=== PATIENT | male | born 1960 | race Caucasian/White ===

== ENCOUNTER 2017-07-04 14:54 | Emergency (ER) | payer BC ==
[2017-07-04] MEDS ORDERED: Ketorolac 60 MG/2 ML SDV IM ONE (16:04)
--- NOTE | 2017-07-04 16:10 | EDM.PDOC ---
ED HPI GENERAL MEDICAL PROBLEM - General Chief Complaint: Headache Stated Complaint: HEADACHES Time Seen by Provider: 07/04/17 15:09 Source of Information: Reports: Patient, Family History Limitations: Reports: No Limitations - History of Present Illness INITIAL COMMENTS - FREE TEXT/NARRATIVE: Hamlet is a 57 year old male with PMH of chrons disease, migraine headaches, and ankylosing spondylitis, who presents to the clinic with c/o headache. He reports he was seen in the clinic on Saturday by Michelle GUTIÉRREZ for the same complaint. He reports that his headache has not gone away. He also reports he is somewhat dizzy/lightheaded. reports he has been "confused." She reports they will be having a conversation and he'll pause and then randomly talk about something else. Patient does not think he is confused. He denies any other symptoms. Does have some photophobia and phonophobia. Headache hasn't really interfered with his daily activities. He has continued to go to work etc. Denies any weakness, vertigo, fatigue, neuro change, chest pain, shortness of breath, difficulty chewing, cough, fever, chills. Does report his neck is tense. Onset Date: 06/24/17 Duration: Constant Location: Reports: Head Quality: Reports: Ache, Throbbing Severity: Severe Improves with: Reports: Medication Worsens with: Reports: Other (lights, sound) Associated Symptoms: Reports: Confusion, Headaches. 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: Acetaminophen, Aspirin, NSAIDS, Other Medication(s) ( flexeril) Posterior Headache Pain Score (Numeric/FACES): 6 - Related Data Allergies Allergy/AdvReac Type Severity Reaction Status Date / Time No Known Allergies Allergy Verified 07/04/17 15:59 Home Meds: Home Meds Certolizumab Pegol [Cimzia] 400 mg SQ ASDIRECTED 07/04/17 [History] Cholestyramine/Sucrose [Cholestyramine Packet] 4 gm PO ASDIRECTED 07/04/17 [ History] Cyclobenzaprine HCl 10 mg PO 07/04/17 [History] Folic Acid 1 mg PO DAILY 07/04/17 [History] Ketorolac Tromethamine 10 mg PO Q6H PRN #15 tablet 07/04/17 [Rx] Mesalamine [Pentasa] 500 mg PO QID 07/04/17 [History] Methotrexate PF 50 ml ASDIRECTED 07/04/17 [History] Pantoprazole Sodium 40 mg PO ASDIRECTED 07/04/17 [History] sulfaSALAzine [Sulfazine] 500 mg PO QID 07/04/17 [History] Past Medical History Other Gastrointestinal History: Crohns disease. - Past Surgical History GI Surgical History: Reports: Appendectomy, Cholecystectomy Social & Family History - Tobacco Use Smoking Status *Q: Never Smoker Second Hand Smoke Exposure: No ED ROS GENERAL - Review of Systems Review Of Systems: ROS reveals no pertinent complaints other than HPI. Constitutional: Denies: Fever, Chills, Malaise, Weakness, Fatigue, Night Sweats , Diaphoresis, Decreased Appetite HEENT: Reports: No Symptoms. Denies: Ear Pain, Rhinitis, Sinus Problem, Throat Pain, Throat Swelling, Vertigo, Vision Change Respiratory: Reports: No Symptoms. Denies: Shortness of Breath, Cough, Sputum Cardiovascular: Reports: No Symptoms, Lightheadedness. Denies: Chest Pain, Dyspnea on Exertion, Palpitations, Syncope Endocrine: Reports: No Symptoms. Denies: Fatigue GI/Abdominal: Reports: No Symptoms. Denies: Abdominal Pain, Diarrhea, Decreased Appetite, Nausea, Vomiting : Reports: No Symptoms. Denies: Dysuria, Frequency, Urgency Musculoskeletal: Reports: Muscle Stiffness. Denies: Neck Pain Skin: Reports: No Symptoms Neurological: Reports: Confusion, Dizziness, Headache. Denies: Numbness, Paresthesia, Pre-Existing Deficit, Seizure, Syncope, Tingling, Tremors, Trouble Speaking, Difficulty Walking, Weakness, Change in Speech, Gait Disturbance Psychiatric: Reports: No Symptoms. Denies: Anxiety Hematologic/Lymphatic: Reports: No Symptoms Immunologic: Reports: No Symptoms - Physical Exam Exam: See Below Exam Limited By: No Limitations General Appearance: Alert, WD/WN, No Apparent Distress Eye Exam: Bilateral Eye: EOMI, Normal Fundi, Normal Inspection, PERRL Ears: Normal External Exam, Normal Canal, Hearing Grossly Normal, Normal TMs Nose: Normal Inspection, Normal Mucosa, No Blood Throat/Mouth: Normal Inspection, Normal Lips, Normal Teeth, Normal Gums, Normal Oropharynx, Normal Voice, No Airway Compromise Head Exam: Atraumatic, Normocephalic. No: Scalp Tenderness Neck: Normal Inspection, Supple, Non-Tender, Limited Range of Motion, Tender Lateral (stiff). No: Lymphadenopathy (L), Lymphadenopathy (R) Respiratory/Chest: No Respiratory Distress, Lungs Clear, Normal Breath Sounds, No Accessory Muscle Use, Chest Non-Tender Cardiovascular: Normal Peripheral Pulses, Regular Rate, Rhythm, No Edema, No Gallop, No JVD, No Murmur, No Rub GI/Abdominal: Normal Bowel Sounds, Soft, Non-Tender, No Organomegaly, No Distention, No Abnormal Bruit, No Mass Neuro Exam (Abbreviated): Alert, Oriented, CN II-XII Intact, Normal Cognition, Normal Gait, Normal Reflexes, No Motor/Sensory Deficits Back Exam: Normal Inspection, Full Range of Motion, NT Extremities: Normal Inspection, Normal Range of Motion, Non-Tender, No Pedal Edema, Normal Capillary Refill Psychiatric: Normal Affect, Normal Mood Skin Exam: Warm, Dry, Intact, Normal Color, No Rash Course - Vital Signs Last Recorded V/S: Last Vital Signs Temp 98.6 F 07/04/17 15:16 Pulse 80 07/04/17 15:16 Resp 20 07/04/17 15:16 BP 132/75 07/04/17 15:16 Pulse Ox 95 07/04/17 15:16 - Orders/Labs/Meds Orders: Active Orders 24 hr Category Date Time Status Head wo Cont [CT] Stat Exams 07/04/17 15:10 Taken Labs: Laboratory Tests 07/04/17 07/04/17 07/04/17 Range/Units 16:00 16:00 16:00 WBC 7.2 (5.0-10.0) 10^3/uL RBC 4.60 (4.50-6.00) 10^6/uL Hgb 13.8 L (14.0-18.0) g/dL Hct 43.4 (40.0-54.0) % MCV 94.3 H (82.0-94.0) fL MCH 30.0 (27.0-32.0) pg MCHC 31.8 L (33.0-38.0) g/dL RDW Coeff of [place] 14.3 (11.0-15.0) % Plt Count 188 (150-400) 10^3/uL Neut % (Auto) 63.9 (35-85) % Lymph % (Auto) 26.5 (10-55) % [place] % (Auto) 8.5 (0-16) % Eos % (Auto) 1.0 (0-5) % Baso % (Auto) 0.1 (0-3) % Neut # (Auto) 4.60 (1.80-7.00) 10^3/uL Lymph # (Auto) 1.91 (1.00-4.80) 10^3/uL [place] # (Auto) 0.61 (0.00-0.80) 10^3/uL Eos # (Auto) 0.07 (0.00-0.45) 10^3/uL Baso # (Auto) 0.01 10^3/uL ESR 6 (0-15) mm/hr Sodium 142 (136-145) mEq/L Potassium 4.2 (3.5-5.0) mEq/L Chloride 106 (98-106) mEq/L Carbon Dioxide 31 (21-32) mmol/L BUN 13 (7-18) mg/dL Creatinine 1.0 (0.7-1.3) mg/dL Est Cr Clr Drug Dosing 69.89 mL/min Estimated GFR (MDRD) > 60 (>=60) mL/min Glucose 99 (75-99) mg/dL Calcium 8.1 L (8.4-10.1) mg/dL Total Bilirubin 0.3 (0.0-1.0) mg/dL AST 17 (15-37) U/L ALT 38 (12-78) U/L Alkaline Phosphatase 76 (46-116) U/L Creatine Kinase 173 (35-232) U/L C-Reactive Protein < 0.2 L (0.2-0.8) mg/dL Total Protein 6.6 (6.4-8.2) g/dL Albumin 3.1 L (3.4-5.0) g/dL Meds: Medications Discontinued Medications Generic Name Dose Route Start Last Admin Trade Name Freq PRN Reason Stop Dose Admin Ketorolac Tromethamine 60 mg 07/04/17 16:04 07/04/17 16:09 Toradol IM 07/04/17 16:05 60 mg ONETIME ONE Administration Orphenadrine Citrate 60 mg 07/04/17 16:15 07/04/17 16:10 Norflex IM 60 mg STAT MARI Administration - Radiology Interpretation Free Text/Narrative:: CT negative for any acute findings. CT Results Date: 07/04/17 CT Results Time: 16:03 - Re-Assessments/Exams Free Text/Narrative Re-Assessment/Exam: Patients headache improved with injections. Rates pain a 1/10 after injections. Departure - Departure Time of Disposition: 17:04 Disposition: Home, Self-Care 01 Condition: Good Clinical Impression: Tension-type headache - Discharge Information Prescriptions: Ketorolac Tromethamine 10 mg PO Q6H PRN #15 tablet PRN Reason: Pain Instructions: Tension Headache, [id number] Referrals: PCP,None [Primary Care Provider] - Forms: ED Department Discharge Additional Instructions: Toradol Q 6 hours as needed for headache Push fluids to ensure adequate hydration May also continue Flexeril as needed Apply heat to neck for comfort Physical therapy tomorrow morning at [address] negative Labs all stable Follow up with PCP if headache does not improve - My Orders Last 24 Hours: My Active Orders 07/04/17 15:10 Head wo Cont [CT] Stat - Assessment/Plan Last 24 Hours: My Active Orders 07/04/17 15:10 Head wo Cont [CT] Stat
[2017-07-04 16:49] LABS: CHLORIDE,CL 106 mEq/L (98-106); SODIUM,NA 142 mEq/L (136-145)
== END 2017-07-04 17:10 | disposition home or self-care (01) ==
LOC: CC.ED 14:54
DX: G44.209 Tension-type headache, unspecified, not intractable (principal)
CPT/HCPCS: 36415; 70450; 80053; 82550; 85025; 85651; 86140; 96372; 99284; J1885; J2360

== ENCOUNTER 2019-12-28 09:03 | Inpatient (IN) | payer BC, OTHER ==
[2019-12-28] MEDS ORDERED: Ibuprofen 200 MG Tab PO PRN (16:07)
[2019-12-28] MEDS ORDERED: Sodium Chloride 0.9% 10 ML Syringe FLUSH PRN (16:07)
[2019-12-28] MEDS ORDERED: Take Home: Pantoprazole 40 MG Tab.CR, 1 Tab Pack PO SCH (17:15)
[2019-12-28] MEDS ORDERED: CERTOLIZUMAB PEGOL 400 MG SQ SCH (17:15)
[2019-12-28] MEDS ORDERED: FLUTICASONE PROPIONATE INH SCH (17:15)
[2019-12-28] MEDS ORDERED: METHOTREXATE IM SCH (17:15)
[2019-12-28] MEDS: Dexamethasone 4 MG Tab PO SCH (17:19)
[2019-12-28] MEDS: Acetaminophen 325 MG Tab PO PRN (17:19)
[2019-12-28 17:45] LABS: CHLORIDE,CL 99 mEq/L (98-106); SODIUM,NA 135 mEq/L (136-145)
[2019-12-28] MEDS ORDERED: sulfaSALAzine 500 MG Tab PO SCH (20:00)
[2019-12-28] MEDS: Enoxaparin 40 MG/0.4 ML Syringe SUBCUT SCH (20:31)
[2019-12-28] MEDS: traZODone 50 MG Tab PO SCH (20:31)
[2019-12-29] MEDS: sulfaSALAzine 500 MG Tab PO SCH ×3 (01:24→20:07)
[2019-12-29] MEDS: Pantoprazole 40 MG Tab.CR PO SCH (06:35)
[2019-12-29] MEDS ORDERED: Fluticasone Propionate Nasal Spray 16 GM Bottle NAS SCH (08:00)
[2019-12-29] MEDS ORDERED: DULoxetine 30 MG Cap PO SCH (08:00)
[2019-12-29] MEDS: Enoxaparin 40 MG/0.4 ML Syringe SUBCUT SCH ×2 (08:05→20:07)
[2019-12-29] MEDS: Folic Acid 1 MG Tab PO SCH (08:06)
[2019-12-29] MEDS: Dexamethasone 4 MG Tab PO SCH (08:06)
[2019-12-29] MEDS: SUCROSE PO SCH ×2 (15:14→20:07)
[2019-12-29] MEDS: CHOLESTYRAMINE PO SCH ×2 (15:14→20:07)
[2019-12-29] MEDS: MESALAMINE 1000 MG PO SCH (15:15)
[2019-12-29] MEDS: REMDESIVIR (EUA) 100 MG in Sodium Chloride 0.9% 100 ML IV SCH (17:34)
[2019-12-29] MEDS: traZODone 50 MG Tab PO SCH (20:07)
--- NOTE | 2019-12-29 20:57 | PCM.PN ---
- General Info Date of Service: 12/29/19 Admission Dx/Problem (Free Text): COVID 19 Functional Status: Reports: Pain Controlled, Tolerating Diet, Ambulating - Review of Systems General: Reports: Weakness, Fatigue, Malaise. Denies: Fever HEENT: Reports: No Symptoms Pulmonary: Reports: Shortness of Breath, Cough Cardiovascular: Denies: Chest Pain, Edema, Lightheadedness Gastrointestinal: Denies: Abdominal Pain, Nausea, Vomiting Genitourinary: Reports: No Symptoms Musculoskeletal: Reports: Other (myalgia) Skin: Reports: No Symptoms Neurological: Reports: No Symptoms - Patient Data Vitals - Most Recent: Last Vital Signs Temp 97.9 F 12/29/19 16:00 Pulse 94 12/29/19 16:00 Resp 20 12/29/19 16:00 BP 129/84 12/29/19 16:00 Pulse Ox 96 12/29/19 16:00 Weight - Most Recent: 220 lb 5 oz I&O - Last 24 Hours: Intake & Output 12/29/19 12/29/19 12/29/19 06:59 14:59 22:59 Intake Total 400 1500 Output Total 1200 Balance 400 300 Lab Results Last 24 Hours: Laboratory Results - last 24 hr 12/28/19 Range/Units 17:25 Blood Type A POSITIVE Thong Results Last 24 Hours: Microbiology 12/28/19 17:25 Aerobic Blood Culture - Preliminary Blood - Venous NO GROWTH AFTER 1 DAY Anaerobic Blood Culture - Final Med Orders - Current: Current Medications Acetaminophen (Tylenol) 650 mg PO Q4H PRN PRN Reason: Pain (Mild 1-3)/fever Last Admin: 12/28/19 17:19 Dose: 650 mg Documented by: Dexamethasone (Dexamethasone) 6 mg PO DAILY [facility] Last Admin: 12/29/19 08:06 Dose: 6 mg Documented by: Duloxetine HCl (Cymbalta) 60 mg PO DAILY [facility] Last Admin: 12/29/19 08:06 Dose: 60 mg Documented by: Enoxaparin Sodium (Lovenox) 40 mg SUBCUT BID [facility] Last Admin: 12/29/19 20:07 Dose: 40 mg Documented by: Folic Acid (Folic Acid) 1 mg PO DAILY [facility] Last Admin: 12/29/19 08:06 Dose: 1 mg Documented by: Remdesivir 100 mg/ Sodium (Chloride) 100 mls @ 100 mls/hr IV Q24H [facility] Stop: 01/01/20 16:59 Last Admin: 12/29/19 17:34 Dose: 100 mls/hr Documented by: Ibuprofen (Motrin) 600 mg PO Q6H PRN PRN Reason: Pain (mild 1-3) Cholestyramine/Sucrose [ Cholestyramine] 4 Gm Ptom 0 gm PO TID [facility] Last Admin: 12/29/19 20:07 Dose: Not Given Documented by: Non-Formulary Medication (Fluticasone Propionate) 1 each INH ASDIRECTED [facility] Pantoprazole Sodium (Protonix) 40 mg PO DAILY@0700 [facility] Last Admin: 12/29/19 06:35 Dose: 40 mg Documented by: Sodium Chloride (Saline Flush) 10 ml FLUSH ASDIRECTED PRN PRN Reason: Keep Vein Open Sulfasalazine (Sulfasalazine) 1,000 mg PO BID [facility] Last Admin: 12/29/19 20:07 Dose: 1,000 mg Documented by: Trazodone HCl (Trazodone) 50 mg PO BEDTIME [facility] Last Admin: 12/29/19 20:07 Dose: 50 mg Documented by: Discontinued Medications Remdesivir 200 mg/ Sodium (Chloride) 250 mls @ 250 mls/hr IV ONETIME ONE Stop: 12/28/19 16:08 Last Admin: 12/28/19 17:19 Dose: 250 mls/hr Documented by: Non-Formulary Medication (Certolizumab Pegol [Cimzia]) 400 mg SQ ASDIRECTED [facility] Non-Formulary Medication (Mesalamine [Pentasa]) 1,000 mg PO QID [facility] Last Admin: 12/29/19 15:15 Dose: Not Given Documented by: Non-Formulary Medication (Methotrexate Pf) 1 ml IM ASDIRECTED [facility] Sulfasalazine (Sulfasalazine) 100 mg PO BID [facility] Last Admin: 12/29/19 04:43 Dose: Not Given Documented by: - Exam Quality Assessment: Supplemental Oxygen General: Alert, Oriented HEENT: Mucous Membr. Moist/[place] Neck: Supple Lungs: Decreased Breath Sounds Cardiovascular: Regular Rate, Regular Rhythm GI/Abdominal Exam: Normal Bowel Sounds, Soft, Non-Tender Extremities: Normal Inspection, No Pedal Edema Skin: Warm, Dry Neurological: No New Focal Deficit Sepsis Event Note - Evaluation Sepsis Screening Result: No Definite Risk - Focused Exam Vital Signs: Vital Signs Temp Pulse Resp BP Pulse Ox 12/29/19 16:00 97.9 F 94 20 129/84 96 12/29/19 12:00 97.9 F 98 18 138/79 97 - Problem List & Annotations (1) COVID-19 SNOMED Code(s): 131876134 Code(s): U07.1 - COVID-19 Status: Acute Priority: High Current Visit: Yes - Problem List Review Problem List Initiated/Reviewed/Updated: Yes - Assessment Assessment:: COVID 19 - Plan Plan:: Patient resting quietly. Continues to have generalized malaise. Cough, nonproductive. Feels short of breath yet at times with chest tightness. Oxygen sat dropped to 89-90% this am on room air. Has been afebrile. Blood pressure stable. Will continue with Remdesivir, dexamethasone and oxygen. Repeat labs in am.
[2019-12-30] MEDS: Pantoprazole 40 MG Tab.CR PO SCH (06:36)
[2019-12-30] MEDS ORDERED: CHOLESTYRAMINE PO SCH (08:00)
[2019-12-30] MEDS ORDERED: BUDESONIDE 3 MG PO SCH (08:00)
[2019-12-30] MEDS ORDERED: amLODIPine 10 MG Tab PO SCH (08:00)
[2019-12-30] MEDS ORDERED: SUCROSE PO SCH (08:00)
[2019-12-30 08:08] LABS: CHLORIDE,CL 102 mEq/L (98-106); SODIUM,NA 142 mEq/L (136-145)
[2019-12-30] MEDS: Dexamethasone 4 MG Tab PO SCH (08:17)
[2019-12-30] MEDS: sulfaSALAzine 500 MG Tab PO SCH (08:18)
[2019-12-30] MEDS: Folic Acid 1 MG Tab PO SCH (08:19)
[2019-12-30] MEDS: Enoxaparin 40 MG/0.4 ML Syringe SUBCUT SCH (08:19)
--- NOTE | 2019-12-30 14:57 | PCM.PN ---
- General Info Date of Service: 12/30/19 Admission Dx/Problem (Free Text): COVID 19 Functional Status: Reports: Pain Controlled, Ambulating. Denies: Tolerating Diet (patient states appetite is poor this am) - Review of Systems General: Reports: Weakness, Fatigue, Malaise. Denies: Fever HEENT: Reports: Headaches, Rhinitis. Denies: Ear Pain, Sinus Congestion Pulmonary: Reports: Pleuritic Chest Pain, Cough Cardiovascular: Denies: Chest Pain, Edema, Lightheadedness Gastrointestinal: Reports: Diarrhea. Denies: Abdominal Pain, Nausea, Vomiting Genitourinary: Reports: No Symptoms Musculoskeletal: Reports: Other (myalgia) Skin: Reports: No Symptoms Neurological: Reports: Headache, Weakness - Patient Data Vitals - Most Recent: Last Vital Signs Temp 97.4 F 12/30/19 12:00 Pulse 101 H 12/30/19 12:00 Resp 22 H 12/30/19 12:00 BP 149/74 H 12/30/19 12:00 Pulse Ox 95 12/30/19 12:00 Weight - Most Recent: 220 lb 5 oz I&O - Last 24 Hours: Intake & Output 12/29/19 12/30/19 12/30/19 22:59 06:59 14:59 Intake Total 1500 1000 Output Total 1200 Balance 300 1000 Lab Results Last 24 Hours: Laboratory Results - last 24 hr 12/30/19 12/30/19 Range/Units 07:35 07:35 WBC 6.5 (5.0-10.0) 10^3/uL RBC 4.57 (4.50-6.00) 10^6/uL Hgb 14.5 (14.0-18.0) g/dL Hct 43.7 (40.0-54.0) % MCV 95.6 H (82.0-94.0) fL MCH 31.7 (27.0-32.0) pg MCHC 33.2 (33.0-38.0) g/dL RDW Coeff of [place]elin 14.8 (11.0-15.0) % Plt Count 178 (150-400) 10^3/uL Neut % (Auto) 60.5 (35-85) % Lymph % (Auto) 29.8 (10-55) % [place] % (Auto) 9.5 (0-16) % Eos % (Auto) 0 (0-5) % Baso % (Auto) 0.2 (0-3) % Neut # (Auto) 3.95 (1.80-7.00) 10^3/uL Lymph # (Auto) 1.94 (1.00-4.80) 10^3/uL [place] # (Auto) 0.62 (0.00-0.80) 10^3/uL Eos # (Auto) 0.00 (0.00-0.45) 10^3/uL Baso # (Auto) 0.01 10^3/uL Sodium 142 (136-145) mEq/L Potassium 3.4 L (3.5-5.0) mEq/L Chloride 102 (98-106) mEq/L Carbon Dioxide 31 (21-32) mmol/L BUN 21 H D (7-18) mg/dL Creatinine 1.1 (0.7-1.3) mg/dL Est Cr Clr Drug Dosing 62.04 mL/min Estimated GFR (MDRD) > 60 (>=60) mL/min Glucose 93 (75-99) mg/dL Calcium 8.6 (8.4-10.1) mg/dL Total Bilirubin 0.4 (0.0-1.0) mg/dL AST 49 H (15-37) U/L ALT 93 H (12-78) U/L Alkaline Phosphatase 118 H (46-116) U/L C-Reactive Protein 4.5 H (0.2-0.8) mg/dL Total Protein 8.0 (6.4-8.2) g/dL Albumin 3.1 L (3.4-5.0) g/dL Thong Results Last 24 Hours: Microbiology 12/28/19 17:25 Aerobic Blood Culture - Preliminary Blood - Venous NO GROWTH AFTER 1 DAY Anaerobic Blood Culture - Final Med Orders - Current: Current Medications Acetaminophen (Tylenol) 650 mg PO Q4H PRN PRN Reason: Pain (Mild 1-3)/fever Last Admin: 12/28/19 17:19 Dose: 650 mg Documented by: Amlodipine Besylate (Norvasc) 5 mg PO DAILY [facility] Last Admin: 12/30/19 08:19 Dose: 5 mg Documented by: Dexamethasone (Dexamethasone) 6 mg PO DAILY [facility] Last Admin: 12/30/19 08:17 Dose: 6 mg Documented by: Divalproex Sodium (Depakote Er) 1,000 mg PO BEDTIME [facility] Duloxetine HCl (Cymbalta) 90 mg PO DAILY [facility] Enoxaparin Sodium (Lovenox) 40 mg SUBCUT BID [facility] Last Admin: 12/30/19 08:19 Dose: 40 mg Documented by: Folic Acid (Folic Acid) 1 mg PO DAILY [facility] Last Admin: 12/30/19 08:19 Dose: 1 mg Documented by: Remdesivir 100 mg/ Sodium (Chloride) 100 mls @ 100 mls/hr IV Q24H [facility] Stop: 01/01/20 16:59 Last Admin: 12/29/19 17:34 Dose: 100 mls/hr Documented by: Ibuprofen (Motrin) 600 mg PO Q6H PRN PRN Reason: Pain (mild 1-3) Non-Formulary Medication (Fluticasone Propionate) 1 each INH ASDIRECTED [facility] Cholestyramine/Sucrose 4 Gm Own Med 0 each PO DAILY [facility] Last Admin: 12/30/19 08:20 Dose: 1 each Documented by: Pantoprazole Sodium (Protonix) 40 mg PO DAILY@0700 [facility] Last Admin: 12/30/19 06:36 Dose: 40 mg Documented by: Patient's Own Medication Budesonide 3 Mg Cap* * 3 each PO DAILY [facility] Last Admin: 12/30/19 09:49 Dose: 3 each Documented by: Sodium Chloride (Saline Flush) 10 ml FLUSH ASDIRECTED PRN PRN Reason: Keep Vein Open Sulfasalazine (Sulfasalazine) 1,000 mg PO BID [facility] Last Admin: 12/30/19 08:18 Dose: 1,000 mg Documented by: Trazodone HCl (Trazodone) 50 mg PO BEDTIME [facility] Last Admin: 12/29/19 20:07 Dose: 50 mg Documented by: Discontinued Medications Duloxetine HCl (Cymbalta) 60 mg PO DAILY [facility] Last Admin: 12/29/19 08:06 Dose: 60 mg Documented by: Remdesivir 200 mg/ Sodium (Chloride) 250 mls @ 250 mls/hr IV ONETIME ONE Stop: 12/28/19 16:08 Last Admin: 12/28/19 17:19 Dose: 250 mls/hr Documented by: Non-Formulary Medication (Certolizumab Pegol [Cimzia]) 400 mg SQ ASDIRECTED [facility] Cholestyramine/Sucrose [ Cholestyramine] 4 Gm Ptom 0 gm PO TID [facility] Last Admin: 12/29/19 20:07 Dose: Not Given Documented by: Non-Formulary Medication (Mesalamine [Pentasa]) 1,000 mg PO QID [facility] Last Admin: 12/29/19 15:15 Dose: Not Given Documented by: Non-Formulary Medication (Methotrexate Pf) 1 ml IM ASDIRECTED [facility] Sulfasalazine (Sulfasalazine) 100 mg PO BID [facility] Last Admin: 12/29/19 04:43 Dose: Not Given Documented by: - Exam Quality Assessment: Supplemental Oxygen General: Alert, Oriented HEENT: Mucous Membr. Moist/[place] Neck: Supple Lungs: Decreased Breath Sounds Cardiovascular: Regular Rate, Regular Rhythm GI/Abdominal Exam: Normal Bowel Sounds, Soft, Non-Tender Extremities: Normal Inspection, No Pedal Edema Skin: Warm, Dry Neurological: No New Focal Deficit Sepsis Event Note - Evaluation Sepsis Screening Result: No Definite Risk - Focused Exam Vital Signs: Vital Signs Temp Pulse Resp BP BP Pulse Ox 12/30/19 12:00 97.4 F 101 H 22 H 149/74 H 95 12/30/19 08:19 150/78 H 12/30/19 08:00 98.4 F 98 22 H 153/89 H 94 L 12/30/19 04:00 98.3 F 87 16 142/83 H 97 - Problem List & Annotations (1) COVID-19 SNOMED Code(s): 856257655 Code(s): U07.1 - COVID-19 Status: Acute Priority: High Current Visit: Yes - Problem List Review Problem List Initiated/Reviewed/Updated: Yes - Assessment Assessment:: COVID 19 - Plan Plan:: Patient resting quietly. Continues to have generalized malaise. Cough, nonprod uctive. Feels short of breath yet at times with chest tightness. Oxygen sat dropped to 89-90% this am on room air. Has been afebrile. Blood pressure stable. Will continue with Remdesivir, dexamethasone and oxygen. Repeat labs in am. 12-30-19 Patient admits to not feeling as well this am. Did sleep well but has more of a headache, body aches this am. History of diarrhea but does feel it is worse this am. Appetite diminished this am. Some chest tightness. Lung sounds diminished. Oxygen sat 94% on 2 liters. Labs are stable this am. Will continue with Remdesivir, dexamethasone. Plasma to be given today. Continue to follow
[2019-12-30] MEDS: Acetaminophen 325 MG Tab PO PRN (15:06)
[2019-12-30] MEDS: REMDESIVIR (EUA) 100 MG in Sodium Chloride 0.9% 100 ML IV SCH (15:07)
--- NOTE | 2019-12-30 15:50 | PCM.DCSUM1 ---
Discharge Summary - Hospital Course HPI Initial Comments: Hamlet is a 59 yo male who was admitted to the hospital from clinic 12/28/2019 with COVID-19 with hypoxia. Chest xray did reveal LLL infiltrate. He has been maintaining O2 sats > 92% on 2 L O2 via NC throughout stay. Today, patient feels like his body aches, chills, and diarrhea are worse. Patient has received 3 doses of remdesivir, 6 mg dexamethasone daily. Was scheduled to receive plasma this evening, but patient desired to transfer prior to plasma being thawed, so he did not receive this. Family called in multiple times, requesting patient be transferred to higher level of care given his history of Chron's disease and reactive airway disease. is concerned as he feels worse today. Staff did discuss with patient that these body aches and symptoms are typical of Covid. I did contact [facility] one call per family request. Discussed case with Dr. Ferrer, who accepted patient for transfer. Patient will be transferred via ALS to [facility]. Currently he is in stable condition. - Discharge Data Discharge Date: 12/30/19 Discharge Disposition: DC/Tfer to Acute Hospital 02 Condition: Fair - Referral to Home Health Primary Care Physician: Charanjit Mercado PA-C - Discharge Diagnosis/Problem(s) (1) COVID-19 SNOMED Code(s): 452332608 ICD Code: U07.1 - COVID-19 Status: Acute Priority: High Current Visit: Yes - Patient Instructions Diet: Usual Diet as Tolerated Activity: As Tolerated - Discharge Plan *PRESCRIPTION DRUG MONITORING PROGRAM REVIEWED*: Not Applicable *COPY OF PRESCRIPTION DRUG MONITORING REPORT IN PATIENT SARAH: Not Applicable Home Medications: Home Meds Cholestyramine/Sucrose [Cholestyramine Packet] 4 gm PO DAILY 07/04/17 [History] Folic Acid 1 mg PO DAILY 07/04/17 [History] Methotrexate PF 1 ml IM WEEKLY 07/04/17 [History] Pantoprazole Sodium 40 mg PO DAILY 07/04/17 [History] sulfaSALAzine [Sulfazine] 1,000 mg PO BID 07/04/17 [History] DULoxetine HCl [Duloxetine HCl] 90 mg PO DAILY 04/16/19 [History] Eletriptan Hydrobromide [Relpax] 20 mg PO DAILY PRN 04/16/19 [History] Fluticasone Propionate [Flovent HFA 110 MCG] 1 each INH BID 04/16/19 [History] traZODone HCl [Trazodone HCl] 50 mg PO BEDTIME 04/16/19 [History] Budesonide [Budesonide EC] 3 cap PO DAILY 12/29/19 [History] Divalproex Sodium [Divalproex Sodium ER] 1,000 mg PO BEDTIME 12/29/19 [History] amLODIPine [Norvasc] 5 mg PO DAILY 12/29/19 [History] - Discharge Summary/Plan Comment DC Time >30 min.: Yes (Arranging transfer, transfer paperwork) - General Info Date of Service: 12/30/19 Admission Dx/Problem (Free Text: COVID 19 - Review of Systems General: Reports: Weakness, Fatigue, Malaise, Chills. Denies: Appetite Pulmonary: Reports: Shortness of Breath, Cough, Sputum Cardiovascular: Reports: Chest Pain (tightness), Dyspnea on Exertion. Denies: Edema, Lightheadedness - Patient Data Vitals - Most Recent: Last Vital Signs Temp 98.7 F 12/30/19 15:15 Pulse 86 12/30/19 15:15 Resp 22 H 12/30/19 15:15 BP 139/87 12/30/19 15:15 Pulse Ox 94 L 12/30/19 15:15 Weight - Most Recent: 220 lb 5 oz I&O - Last 24 hours: Intake & Output 12/30/19 12/30/19 12/30/19 06:59 14:59 22:59 Intake Total 1000 Balance 1000 Lab Results - Last 24 hrs: Laboratory Results - last 24 hr 12/30/19 12/30/19 Range/Units 07:35 07:35 WBC 6.5 (5.0-10.0) 10^3/uL RBC 4.57 (4.50-6.00) 10^6/uL Hgb 14.5 (14.0-18.0) g/dL Hct 43.7 (40.0-54.0) % MCV 95.6 H (82.0-94.0) fL MCH 31.7 (27.0-32.0) pg MCHC 33.2 (33.0-38.0) g/dL RDW Coeff of Katelin 14.8 (11.0-15.0) % Plt Count 178 (150-400) 10^3/uL Neut % (Auto) 60.5 (35-85) % Lymph % (Auto) 29.8 (10-55) % [place] % (Auto) 9.5 (0-16) % Eos % (Auto) 0 (0-5) % Baso % (Auto) 0.2 (0-3) % Neut # (Auto) 3.95 (1.80-7.00) 10^3/uL Lymph # (Auto) 1.94 (1.00-4.80) 10^3/uL [place] # (Auto) 0.62 (0.00-0.80) 10^3/uL Eos # (Auto) 0.00 (0.00-0.45) 10^3/uL Baso # (Auto) 0.01 10^3/uL Sodium 142 (136-145) mEq/L Potassium 3.4 L (3.5-5.0) mEq/L Chloride 102 (98-106) mEq/L Carbon Dioxide 31 (21-32) mmol/L BUN 21 H D (7-18) mg/dL Creatinine 1.1 (0.7-1.3) mg/dL Est Cr Clr Drug Dosing 62.04 mL/min Estimated GFR (MDRD) > 60 (>=60) mL/min Glucose 93 (75-99) mg/dL Calcium 8.6 (8.4-10.1) mg/dL Total Bilirubin 0.4 (0.0-1.0) mg/dL AST 49 H (15-37) U/L ALT 93 H (12-78) U/L Alkaline Phosphatase 118 H (46-116) U/L C-Reactive Protein 4.5 H (0.2-0.8) mg/dL Total Protein 8.0 (6.4-8.2) g/dL Albumin 3.1 L (3.4-5.0) g/dL [facility] Results - Last 24 hrs: Microbiology 12/28/19 17:25 Aerobic Blood Culture - Preliminary Blood - Venous NO GROWTH AFTER 1 DAY Anaerobic Blood Culture - Final Med Orders - Current: Current Medications Acetaminophen (Tylenol) 650 mg PO Q4H PRN PRN Reason: Pain (Mild 1-3)/fever Last Admin: 10/21/20 15:06 Dose: 650 mg Documented by: Amlodipine Besylate (Norvasc) 5 mg PO DAILY [facility] Last Admin: 12/30/19 08:19 Dose: 5 mg Documented by: Dexamethasone (Dexamethasone) 6 mg PO DAILY [facility] Last Admin: 12/30/19 08:17 Dose: 6 mg Documented by: Divalproex Sodium (Depakote Er) 1,000 mg PO BEDTIME [facility] Duloxetine HCl (Cymbalta) 90 mg PO DAILY [facility] Enoxaparin Sodium (Lovenox) 40 mg SUBCUT BID [facility] Last Admin: 12/30/19 08:19 Dose: 40 mg Documented by: Folic Acid (Folic Acid) 1 mg PO DAILY [facility] Last Admin: 12/30/19 08:19 Dose: 1 mg Documented by: Remdesivir 100 mg/ Sodium (Chloride) 100 mls @ 100 mls/hr IV Q24H [facility] Stop: 01/01/20 16:59 Last Admin: 12/30/19 15:07 Dose: 100 mls/hr Documented by: Ibuprofen (Motrin) 600 mg PO Q6H PRN PRN Reason: Pain (mild 1-3) Non-Formulary Medication (Fluticasone Propionate) 1 each INH ASDIRECTED [facility] Cholestyramine/Sucrose 4 Gm Own Med 0 each PO DAILY [facility] Last Admin: 12/30/19 08:20 Dose: 1 each Documented by: Pantoprazole Sodium (Protonix) 40 mg PO DAILY@0700 [facility] Last Admin: 12/30/19 06:36 Dose: 40 mg Documented by: Patient's Own Medication Budesonide 3 Mg Cap* * 3 each PO DAILY [facility] Last Admin: 12/30/19 09:49 Dose: 3 each Documented by: Sodium Chloride (Saline Flush) 10 ml FLUSH ASDIRECTED PRN PRN Reason: Keep Vein Open Sulfasalazine (Sulfasalazine) 1,000 mg PO BID [facility] Last Admin: 12/30/19 08:18 Dose: 1,000 mg Documented by: Trazodone HCl (Trazodone) 50 mg PO BEDTIME [facility] Last Admin: 12/29/19 20:07 Dose: 50 mg Documented by: Discontinued Medications Duloxetine HCl (Cymbalta) 60 mg PO DAILY [facility] Last Admin: 12/29/19 08:06 Dose: 60 mg Documented by: Remdesivir 200 mg/ Sodium (Chloride) 250 mls @ 250 mls/hr IV ONETIME ONE Stop: 12/28/19 16:08 Last Admin: 12/28/19 17:19 Dose: 250 mls/hr Documented by: Non-Formulary Medication (Certolizumab Pegol [Cimzia]) 400 mg SQ ASDIRECTED [facility] Cholestyramine/Sucrose [ Cholestyramine] 4 Gm Ptom 0 gm PO TID [facility] Last Admin: 12/29/19 20:07 Dose: Not Given Documented by: Non-Formulary Medication (Mesalamine [Pentasa]) 1,000 mg PO QID [facility] Last Admin: 12/29/19 15:15 Dose: Not Given Documented by: Non-Formulary Medication (Methotrexate Pf) 1 ml IM ASDIRECTED [facility] Sulfasalazine (Sulfasalazine) 100 mg PO BID [facility] Last Admin: 12/29/19 04:43 Dose: Not Given Documented by: - Exam Quality Assessment: Reports: Supplemental Oxygen General: Reports: Alert, Oriented, No Acute Distress Neck: Reports: Supple Lungs: Reports: Normal Respiratory Effort, Decreased Breath Sounds Cardiovascular: Reports: Regular Rate, Regular Rhythm
[2019-12-30] MEDS ORDERED: DULoxetine 30 MG Cap PO SCH (20:00)
[2019-12-30] MEDS ORDERED: Divalproex Sodium 250 MG Tab.ER PO SCH (20:00)
== END 2019-12-30 17:43 | DRG 137 ==
LOC: CC.FCMC 09:03 → CC.MS 16:05 → UNDOADMIN 16:05 → CC.MS 16:07
PROVIDERS: ADMIT Physician Assistant Medical; ATTEND Family Medicine
PROC: XW033E5 Introduction of Remdesivir Anti-infective into Peripheral Vein, Percutaneous Approach, New Technology Group 5 (ICD-10-PCS; principal; 2019-12-28)
PROC: XW033F5 Introduction of Other New Technology Therapeutic Substance into Peripheral Vein, Percutaneous Approach, New Technology Group 5 (ICD-10-PCS; 2019-12-28)
DX: U07.1 COVID-19 (principal); R09.02 Hypoxemia
CPT/HCPCS: 36415; 71046; 80053; 83605; 85025; 85379; 86140; 86900; 86901; 87040; A9270-GY; J1650; J7050; J8540; U0002

== ENCOUNTER 2024-04-18 19:57 | Inpatient (IN) | payer BC ==
[2024-04-18] MEDS: Albuterol/Ipratropium 3.0-0.5 MG/3 ML Neb Soln NEB ONE (20:19)
[2024-04-18 20:31] LABS: BASOPHILS ABSOLUTE AUTO 0.02 10^3/uL (0.00-0.50); BASOPHILS PERCENT AUTO 0.2 % (0-1); EOSINOPHILS ABSOLUTE AUTO 0.01 10^3/uL (0.00-1.50); EOSINOPHILS PERCENT AUTO 0.1 % (0-6); HEMATOCRIT 38.5 % (42.0-52.0); HEMOGLOBIN 12.2 g/dL (14.0-18.0); IMMATURE GRAN ABSOLUTE AUTO 0.02 10^3/uL (0.00-0.49); IMMATURE GRAN PERCENT AUTO 0.2 % (0.0-4.9); LYMPHOCYTES ABSOLUTE AUTO 1.03 10^3/uL (0.60-5.00); MEAN CORPUSCULAR HEMOGLOBIN 31.4 pg (27.0-32.0); MEAN CORPUSCULAR HGB CONC 31.7 g/dL (32.0-36.0); MEAN CORPUSCULAR VOLUME 99.2 fL (83.0-97.0); MONOCYTES ABSOLUTE AUTO 0.57 10^3/uL (0.00-1.50); MONOCYTES PERCENT AUTO 6.6 % (0-10); NEUTROPHILS ABSOLUTE AUTO 6.95 x10^3/uL (1.80-8.00); NEUTROPHILS PERCENT AUTO 80.9 % (41-71); PLATELET COUNT,PLT 166 10^3/uL (150-400); RED BLOOD CELL COUNT 3.88 x10^6/uL (4.50-6.00); WHITE BLOOD CELL COUNT,WBC 8.6 10^3/uL (4.0-11.0)
[2024-04-18 20:47] LABS: ALANINE AMINOTRANSFERASE,ALT 24 U/L (12-78); ALBUMIN 2.9 g/dL (3.4-5.0); ALKALINE PHOSPHATASE 72 U/L (46-116); ASPARTATE AMNIOTRANSFERASE,AST 22 U/L (15-37); BILIRUBIN TOTAL 0.6 mg/dL (0.0-1.0); BLOOD UREA NITROGEN,BUN 10 mg/dL (7-18); C-REACTIVE PROTEIN 11.35 mg/dL (<=0.50); CALCIUM 8.2 mg/dL (8.4-10.1); CARBON DIOXIDE,CO2 28 mmol/L (21-32); CHLORIDE,CL 99 mEq/L (98-106); CREATININE 0.9 mg/dL (0.7-1.3); ESTIMATED GFR 97 mL/min (>=60); GLUCOSE RANDOM 101 mg/dL (75-99); MAGNESIUM 1.8 mg/dL (1.8-2.4); POTASSIUM,K 3.4 mEq/L (3.5-5.0); PROTEIN TOTAL,TP 6.6 g/dL (6.4-8.2); SODIUM,NA 138 mEq/L (136-145)
[2024-04-18] MEDS: methylPREDNISolone Sodium Succinate 40 MG/1 ML SDV IVPUSH ONE (20:47)
[2024-04-18] MEDS: Acetaminophen 500 MG Tab PO ONE (20:52)
[2024-04-18] MEDS: Sodium Chloride 0.9% 500 ML IV SCH (21:03)
[2024-04-18] MEDS: Azithromycin 250 MG Tab PO SCH (21:04)
[2024-04-18] MEDS: cefTRIAXone 2 GM Vial IVPUSH SCH (21:22)
[2024-04-18] MEDS: Potassium Chloride 20 MEQ Tab.ER PO ONE (22:06)
[2024-04-18] MEDS ORDERED: Polyethylene Glycol 3350 Powder 17 GM Packet PO PRN (22:21)
[2024-04-18] MEDS ORDERED: Albuterol 0.083% 2.5 MG/3 ML Neb Soln NEB PRN (22:21)
[2024-04-18] MEDS ORDERED: Docusate Sodium 100 MG Cap PO PRN (22:21)
[2024-04-18] MEDS ORDERED: Ondansetron 4 MG Tab.DIS PO PRN (22:21)
[2024-04-19] MEDS: Sodium Chloride 0.9% 1,000 ML IV SCH ×2 (01:56→12:48)
[2024-04-19] MEDS: Pantoprazole 40 MG Tab.CR PO SCH (06:50)
[2024-04-19 07:15] LABS: C-REACTIVE PROTEIN 10.04 mg/dL (<=0.50); CALCIUM 8.3 mg/dL (8.4-10.1); CREATININE 0.9 mg/dL (0.7-1.3); EST CRCL DRUG DOSING (CG) 71.26 mL/min; POTASSIUM,K 4.3 mEq/L (3.5-5.0)
[2024-04-19] MEDS: Losartan 100 MG Tab PO SCH (07:56)
[2024-04-19] MEDS: Loperamide 2 MG Cap PO SCH (07:56)
[2024-04-19] MEDS: Loratadine 10 MG Tab PO SCH (07:56)
[2024-04-19] MEDS: DULoxetine 30 MG Cap PO SCH (07:56)
[2024-04-19] MEDS: Multivitamin Tab PO SCH (07:56)
[2024-04-19] MEDS: sulfaSALAzine 500 MG Tab PO SCH (07:56)
[2024-04-19] MEDS: Ferrous Sulfate 324 MG Tab.EC PO SCH (07:57)
[2024-04-19] MEDS: Calcium Carbonate 500 MG Tab.Chew PO SCH (07:57)
[2024-04-19] MEDS: Folic Acid 1 MG Tab PO SCH (07:57)
[2024-04-19] MEDS: methylPREDNISolone Sodium Succinate 40 MG/1 ML SDV IVPUSH SCH (07:58)
[2024-04-19] MEDS: Albuterol/Ipratropium 3.0-0.5 MG/3 ML Neb Soln NEB SCH (07:59)
[2024-04-19] MEDS: Enoxaparin 40 MG/0.4 ML Syringe SUBCUT SCH (07:59)
[2024-04-19] MEDS: Ipratropium 0.02% 0.5 MG/2.5 ML Neb Soln NEB SCH (07:59)
[2024-04-19] MEDS: RINVOQ 15 MG PO SCH (08:00)
[2024-04-19] MEDS: BUDESONIDE 3 MG PO SCH (08:00)
[2024-04-19] MEDS: [UNRECOGNIZED DRUG - OTHER] PO SCH (08:00)
[2024-04-19 08:17] LABS: BASOPHILS ABSOLUTE AUTO 0.01 10^3/uL (0.00-0.50); BASOPHILS PERCENT AUTO 0.1 % (0-1); HEMATOCRIT 39.1 % (42.0-52.0); HEMOGLOBIN 12.3 g/dL (14.0-18.0); IMMATURE GRAN ABSOLUTE AUTO 0.03 10^3/uL (0.00-0.49); IMMATURE GRAN PERCENT AUTO 0.4 % (0.0-4.9); LYMPHOCYTES ABSOLUTE AUTO 0.74 10^3/uL (0.60-5.00); LYMPHOCYTES PERCENT AUTO 9.3 % (24-44); MEAN CORPUSCULAR HEMOGLOBIN 31.3 pg (27.0-32.0); MEAN CORPUSCULAR HGB CONC 31.5 g/dL (32.0-36.0); MEAN CORPUSCULAR VOLUME 99.5 fL (83.0-97.0); MONOCYTES ABSOLUTE AUTO 0.48 10^3/uL (0.00-1.50); MONOCYTES PERCENT AUTO 6.1 % (0-10); NEUTROPHILS ABSOLUTE AUTO 6.66 x10^3/uL (1.80-8.00); NEUTROPHILS PERCENT AUTO 84.1 % (41-71); PLATELET COUNT,PLT 181 10^3/uL (150-400); RED BLOOD CELL COUNT 3.93 x10^6/uL (4.50-6.00); WHITE BLOOD CELL COUNT,WBC 7.9 10^3/uL (4.0-11.0)
[2024-04-19] MEDS: Acetaminophen 325 MG Tab PO PRN (18:18)
[2024-04-19] MEDS: Mometasone Furoate Powder 220 MCG/Puff 14 Dose Inhaler INH SCH (18:57)
[2024-04-19] MEDS: traZODone 50 MG Tab PO SCH (19:37)
[2024-04-19] MEDS: Montelukast 10 MG Tab PO SCH (19:37)
[2024-04-19] MEDS: Vitamin E (dl-alpha-tocopherol acetate) 400 Unit Cap PO SCH (19:38)
[2024-04-19] MEDS: Cyanocobalamin (Vitamin B12) 1,000 MCG Tab PO SCH (19:38)
[2024-04-19] MEDS: guaiFENesin 200 MG Tab PO PRN (20:37)
[2024-04-20 07:34] LABS: BASOPHILS ABSOLUTE AUTO 0.01 10^3/uL (0.00-0.50); BASOPHILS PERCENT AUTO 0.1 % (0-1); EOSINOPHILS ABSOLUTE AUTO 0.01 10^3/uL (0.00-1.50); EOSINOPHILS PERCENT AUTO 0.1 % (0-6); HEMOGLOBIN 12.1 g/dL (14.0-18.0); IMMATURE GRAN ABSOLUTE AUTO 0.05 10^3/uL (0.00-0.49); IMMATURE GRAN PERCENT AUTO 0.4 % (0.0-4.9); LYMPHOCYTES ABSOLUTE AUTO 1.42 10^3/uL (0.60-5.00); LYMPHOCYTES PERCENT AUTO 10.8 % (24-44); MEAN CORPUSCULAR HEMOGLOBIN 31.8 pg (27.0-32.0); MEAN CORPUSCULAR HGB CONC 30.3 g/dL (32.0-36.0); MONOCYTES ABSOLUTE AUTO 0.49 10^3/uL (0.00-1.50); MONOCYTES PERCENT AUTO 3.7 % (0-10); NEUTROPHILS ABSOLUTE AUTO 11.13 x10^3/uL (1.80-8.00); NEUTROPHILS PERCENT AUTO 84.9 % (41-71); PLATELET COUNT,PLT 199 10^3/uL (150-400); RED BLOOD CELL COUNT 3.81 x10^6/uL (4.50-6.00); WHITE BLOOD CELL COUNT,WBC 13.1 10^3/uL (4.0-11.0)
[2024-04-20 10:25] LABS: INFLUENZA A NAA NEGATIVE (NEGATIVE); INFLUENZA B NAA NEGATIVE (NEGATIVE)
[2024-04-20 10:27] LABS: CORONAVIRUS COVID-19 NAA POSITIVE (NEGATIVE)
[2024-04-20 11:07] LABS: CALCIUM 8.4 mg/dL (8.4-10.1); EST CRCL DRUG DOSING (CG) 64.13 mL/min; POTASSIUM,K 4.1 mEq/L (3.5-5.0)
[2024-04-20] MEDS: REMDESIVIR 200 MG in Sodium Chloride 0.9% 250 ML IV ONE (11:08)
[2024-04-20 11:21] LABS: BILIRUBIN DIRECT 0.1 mg/dL (0.0-0.3); BILIRUBIN TOTAL 0.5 mg/dL (0.0-1.0); PROTEIN TOTAL,TP 7.2 g/dL (6.4-8.2)
[2024-04-20] MEDS: Cholestyramine/Sucrose Powder 4 GM Packet PO ONE (14:41)
[2024-04-20] MEDS: Melatonin 3 MG Tab PO SCH (19:33)
[2024-04-20] MEDS: cefTRIAXone 2 GM Vial IVPUSH SCH (19:35)
[2024-04-21 07:49] LABS: BASOPHILS ABSOLUTE AUTO 0.02 10^3/uL (0.00-0.50); BASOPHILS PERCENT AUTO 0.2 % (0-1); HEMATOCRIT 35.9 % (42.0-52.0); IMMATURE GRAN ABSOLUTE AUTO 0.08 10^3/uL (0.00-0.49); IMMATURE GRAN PERCENT AUTO 0.8 % (0.0-4.9); LYMPHOCYTES ABSOLUTE AUTO 1.16 10^3/uL (0.60-5.00); LYMPHOCYTES PERCENT AUTO 11.8 % (24-44); MEAN CORPUSCULAR HEMOGLOBIN 31.3 pg (27.0-32.0); MEAN CORPUSCULAR HGB CONC 30.6 g/dL (32.0-36.0); MONOCYTES ABSOLUTE AUTO 0.62 10^3/uL (0.00-1.50); MONOCYTES PERCENT AUTO 6.3 % (0-10); NEUTROPHILS ABSOLUTE AUTO 7.96 x10^3/uL (1.80-8.00); NEUTROPHILS PERCENT AUTO 80.9 % (41-71); PLATELET COUNT,PLT 210 10^3/uL (150-400); RED BLOOD CELL COUNT 3.52 x10^6/uL (4.50-6.00); WHITE BLOOD CELL COUNT,WBC 9.8 10^3/uL (4.0-11.0)
[2024-04-21 08:18] LABS: ALBUMIN 2.6 g/dL (3.4-5.0); BILIRUBIN DIRECT 0.1 mg/dL (0.0-0.3); BILIRUBIN TOTAL 0.3 mg/dL (0.0-1.0); CALCIUM 8.4 mg/dL (8.4-10.1); CREATININE 0.9 mg/dL (0.7-1.3); EST CRCL DRUG DOSING (CG) 71.26 mL/min; POTASSIUM,K 3.8 mEq/L (3.5-5.0); PROTEIN TOTAL,TP 6.4 g/dL (6.4-8.2)
[2024-04-21] MEDS: REMDESIVIR 100 MG in Sodium Chloride 0.9% 100 ML IV SCH (11:08)
[2024-04-21] MEDS: Cholestyramine/Sucrose Powder 4 GM Packet PO SCH (11:09)
== END 2024-04-21 12:48 | disposition home or self-care (01) | DRG 139 ==
LOC: CC.ED 19:57 → CC.MS 21:15 → UNDOADMIN 21:45 → CC.MS 04-20 10:51
PROVIDERS: ADMIT Nurse Practitioner; ATTEND Nurse Practitioner
PROC: 3E03329 Introduction of Other Anti-infective into Peripheral Vein, Percutaneous Approach (ICD-10-PCS; principal; 2024-04-18)
PROC: XW033E5 Introduction of Remdesivir Anti-infective into Peripheral Vein, Percutaneous Approach, New Technology Group 5 (ICD-10-PCS; 2024-04-20)
DX: J18.9 Pneumonia, unspecified organism (principal); U07.1 COVID-19; J12.82 Pneumonia due to coronavirus disease 2019; J45.31 Mild persistent asthma with (acute) exacerbation; F15.90 Other stimulant use, unspecified, uncomplicated; T38.0X5A Adverse effect of glucocorticoids and synthetic analogues, initial encounter; Z79.1 Long term (current) use of non-steroidal anti-inflammatories (NSAID); Z90.49 Acquired absence of other specified parts of digestive tract; Z79.899 Other long term (current) drug therapy
CPT/HCPCS: 0240U; 36415; 71046; 80048; 80053; 82248; 83605; 83735; 84484; 85025; 86140; 87040; 87070; 87205; 87428-QW; 93005; 93010; 94640; 96374; 99223; 99232; 99233; 99238; 99285-25; A9270-GY; J0248; J0696; J1650; J2919; J3490; J7030; J7040; J7620-GY